=== PATIENT | male | born 1960 | race Caucasian/White ===

== ENCOUNTER → 2018-04-19 | Outpatient (CLI) | payer OTHER ==
--- NOTE | 2018-04-19 17:08 | PCVCIMAG ---
APPROVED REPORT Study performed: 04/19/2018 16:12:04 Exam: Stress Echocardiogram Indication: chest discomfort, Hyperlipidemia Patient Location: Echo lab Stress Nurse: Jennifer Palumbo RN Status: routine Ht: 5 ft 7 in HR: 88 bpm BP: 110/70 mmHg Rhythm: NSR Medical History Medical History: Hyperlipidemia, Family hx of CAD Procedure The patient underwent an Exercise Stress Test using the Reyes Protocol. Blood pressure, heart rate, and EKG were monitored. An Echocardiogram was performed by bomb technician in four stages in quad fashion. At peak stress, four selected images were obtained and placed side by side with resting images for comparison. Stress Test Details Stress Test: Exercise stress testing was performed using a Reyes protocol. HR Resting HR: 88 bpmMax Heart Rate (APMHR): 165 bpm Max HR Achieved: 171 bpmTarget HR (85% APMHR): 140 bpm % of APMHR: 103 HR response to stress: Normal HR response to stress BP Resting BP: 110/70 mmHg Max BP: 168/66 mmHg ECG Resting ECG: Sinus Rhythm Stress ECG: Sinus Rhythm ST Change: Normal Maximum ST Deviation: 0 mm Arrhythmia: None Recovery ECG: Sinus Rhythm Recovery ST Change: Normal Recovery ST Deviation: 0 mm Recovery Arrhythmia: None Clinical Reason for Termination: Maximal effort Exercise duration: 9 min 56 sec Highest Stage Achieved: Stage 3: 3.4 mph at 14% grade. Exercise capacity: 13.10 METs Overall Exercise Capacity for Age: Normal Stress ECG Conclusion Clinical: Non-ischemic ECG: Non-ischemic Pre-Stress Echo The resting Echocardiogram showed normal left ventricular contractility with an estimated Ejection Fraction of about 55-60%. Normal wall motion in all segments on baseline images. Post-Stress Echo The stress Echocardiogram showed normal left ventricular contractility with an estimated Ejection Fraction of about 60-65%. Normal augmentation of wall motion in all segments on post stress images. Clinical No clinical or ECG evidence for ischemia. Conclusion Clinical Response: Non-ischemic Exercise Capacity: Average Stress ECG Response: Non-ischemic Stress Echo Images: Non-ischemic The left ventricle is normal in size and wall thickness in both the rest and stress images. Normal stress echocardiogram with maximal exercise stress. Other Information Study Quality: Good <Conclusion> The left ventricle is normal in size and wall thickness in both the rest and stress images. Normal stress echocardiogram with maximal exercise stress.
== END | disposition home or self-care (01) ==
LOC: PCVCIMAG 16:39
PROVIDERS: ATTEND Internal Medicine
DX: R07.89 Other chest pain (principal); E78.5 Hyperlipidemia, unspecified; Z82.49 Family history of ischemic heart disease and other diseases of the circulatory system
CPT/HCPCS: 93325; 93351